=== PATIENT | male | born 1945 | race Caucasian/White ===

== ENCOUNTER → 2017-12-21 | Outpatient (CLI) | payer OTHER ==
[~2017-12-21] MED LIST: ACETAMINOPHEN325 M1 PO; ASPIRIN325 PO; BENADRYL25 MG PO; CARDIZEM CD180 MG PO; LOPRESSOR25 PO; MEDROLDOSEPACK; MULTIVITAMINS PO; OMEPRAZOLE20 M2 PO; PRILOSEC40 MG PO; SORINE 80 MG TA80 M1 PO; TOPROL XL25 MG; TRICOR145 MG PO
[2017-12-21 16:58] LABS: CALCIUM 8.9 mg/dL (8.5-10.1); CREATININE 0.9 mg/dL (0.6-1.3); POTASSIUM 3.9 mmol/L (3.5-5.1)
== END ==
LOC: M.RAD 16:19
PROVIDERS: Internal Medicine
DX: J18.9 Pneumonia, unspecified organism (principal); J98.11 Atelectasis; I49.3 Ventricular premature depolarization

== ENCOUNTER → 2018-01-04 | Outpatient (CLI) | payer OTHER ==
--- NOTE | 2018-01-04 13:44 | 2DMMODE ---
[place] [address] 2 D/M-MODE ECHOCARDIOGRAM Name: PAUL VALERA Room: [facility]#: [id number] Admission: 01/04/18 Attend Phys: Guy Baez, Discharge: Date of : 49 Date of Service: 01/04/18 1344 Report #: [id number] THIS REPORT FOR: //name// APPROVED REPORT Study performed: 01/04/2018 09:19:52 EXAM: Comprehensive 2D, Doppler, and color-flow Echocardiogram Patient Location: Out-Patient BSA: 2.15 HR: 62 bpm BP: 96/66 mmHg Other Information Study Quality: Good Indications Dyspnea Chest Pain 2D Dimensions LVEF(%): 71.31 (>50%) IVSd: 15.48 (7-11mm) LVOT Diam: 20.46 (18-24mm) LVDd: 49.04 mm PWd: 13.80 (7-11mm) Ascending Ao: 37.33 (22-36mm) LVDs: 29.08 (25-40mm) Aortic Root: 38.86 mm Pitts's LVEF: 71.31 % Volumes Left Atrial Volume (Systole) LA ESV Index: 16.30 mL/m2 Aortic Valve AoV Peak Sree.: 1.08 m/s AO Peak Gr.: 4.63 mmHg LVOT Max P.99 mmHg AO Mean Gr.: 2.29 mmHg LVOT Mean P.74 mmHg LVOT Max V: 1.00 m/s AO V2 VTI: 20.92 cm LVOT Mean V: 0.59 m/s THERESA (VTI): 3.45 cm2 LVOT V1 VTI: 21.95 cm Mitral Valve E/A Ratio: 0.79 MV Decel. Time: 232.06 [place] [address] 2 D/M-MODE ECHOCARDIOGRAM Name: PAUL VALERA Room: [facility]#: [id number] Admission: 01/04/18 Attend Phys: Guy Baez, Discharge: Date of : 49 Date of Service: 01/04/18 1344 Report #: [id number] MV E Max Sree.: 0.49 m/s MV PHT: 67.30 ms MVA (PHT): 3.27 cm2 TDI E/Lateral E': 4.45 E/Medial E': 4.08 Medial E' Sree.: 0.12 m/s Lateral E' Sree.: 0.11 m/s Pulmonary Valve PV Peak Sree.: 0.80 m/s PV Peak Gr.: 2.56 mmHg Tricuspid Valve TR Peak Gr.: 21.70 mmHg RVSP: 26.70 mmHg Left Ventricle The left ventricle is normal size. There is normal LV segmental wall motion. Mild concentric left ventricular hypertrophy. Left ventricular systolic function is normal. The left ventricular ejection fraction is within the normal range. LVEF is 60%. Grade I - abnormal relaxation pattern. Right Ventricle The right ventricle is normal size. The right ventricular systolic function is normal. Atria The left atrium size is normal. The right atrium size is normal. Aortic Valve The aortic valve is normal in structure. No aortic regurgitation is present. There is no aortic valvular stenosis. Mitral Valve The mitral valve is normal in structure. Mild mitral regurgitation. No evidence of mitral valve stenosis. Tricuspid Valve The tricuspid valve is normal in structure. Mild tricuspid regurgitation. The RVSP is __26.7 mmHg. Pulmonic Valve The pulmonary valve is normal in structure. [place] [address] 2 D/M-MODE ECHOCARDIOGRAM Name: NARESHRASHAWNPAUL Marin Room: [facility]#: [id number] Admission: 01/04/18 Attend Phys: Guy Baez, Discharge: Date of : 49 Date of Service: 01/04/18 1344 Report #: [id number] Great Vessels The aortic root is normal in size. IVC is normal in size and collapses with >50% inspiration Pericardium There is no pericardial effusion. <Conclusion> The left ventricle is normal size. Mild concentric left ventricular hypertrophy. Left ventricular systolic function is normal. The left ventricular ejection fraction is within the normal range. LVEF is 60%. Grade I - abnormal relaxation pattern. The right ventricle is normal size. The left atrium size is normal. The aortic valve is normal in structure. The mitral valve is normal in structure. Mild mitral regurgitation. The tricuspid valve is normal in structure. Mild tricuspid regurgitation. The RVSP is __26.7 mmHg. IVC is normal in size and collapses with >50% inspiration There is no pericardial effusion. There is normal LV segmental wall motion. <ELECTRONICALLY SIGNED> By: Paul Chairez MD, FACC 01/04/18 1344 1344 1344 Paul Chairez MD, FACC /INF
== END ==
LOC: M.CRD 09:00
DX: I08.1 Rheumatic disorders of both mitral and tricuspid valves (principal); I48.0 Paroxysmal atrial fibrillation; I49.3 Ventricular premature depolarization